=== PATIENT | male | born 1975 | race Caucasian/White ===

== ENCOUNTER → 2017-06-20 | Outpatient (CLI) | payer OTHER ==
--- NOTE | 2017-06-20 08:33 | MR ---
EXAMINATION TYPE: MR angio head wo con DATE OF EXAM: 06/20/2017 8:28 AM COMPARISON: NONE HISTORY: Headache Three-dimensional [id number] intracranial MRA was performed with multiple intensity projection im ages submitted and source data reviewed at the workstation. The vertebrobasilar system as well as intracranial portions of the internal carotid arteries and thei r major tributaries are patent. I do not see evidence for sizable aneurysm or vascular malformation. IMPRESSION: Normal study.
== END | disposition home or self-care (01) ==
LOC: RADMRIMAIN 08:06
PROVIDERS: ATTEND Family Medicine
DX: R51 Headache (principal)
CPT/HCPCS: 70544

== ENCOUNTER 2018-04-21 18:52 | Emergency (ER) | payer OTHER ==
[2018-04-21 19:13] VITALS: BP 162/95; PULSE 72; RESP 18; TEMP 99.2
[2018-04-21] MEDS ORDERED: ALPRAZolam 0.5 MG TAB PO STA (19:38)
--- NOTE | 2018-04-21 19:38 | ED ---
Psych HPI - General Chief Complaint: Psychiatric Symptoms Stated Complaint: ALLERGIC REACTION Time Seen by Provider: 04/21/18 19:17 Source: patient Mode of arrival: ambulatory - History of Present Illness Initial Comments: Patient is a 43-year-old male that presents for anxiety. The patient states that he is been on Risperdal for the last month and this causes him "very panicky and anxious. He states that he stopped that about 3 days ago and continues to have the symptoms. He denies any suicidal or homicidal ideations.. He states that he called his PCP and they recommended that he come to the emergency department for evaluation. - Related Data Home Medications Medication Instructions Recorded Confirmed Citalopram Hydrobromide [CeleXA] 40 mg PO DAILY 01/24/14 04/21/18 Omeprazole [PriLOSEC] 20 mg PO AC-BID 01/24/14 04/21/18 busPIRone HCL 5 mg PO TID 04/21/18 04/21/18 Previous Rx's Medication Instructions Recorded ALPRAZolam [Xanax] 0.5 mg PO TID PRN #3 tablet 04/21/18 Allergies Allergy/AdvReac Type Severity Reaction Status Date / Time acetaminophen [From Vicodin] AdvReac Chest Pain Verified 04/21/18 19:24 hydrocodone bitartrate AdvReac Chest Pain Verified 04/21/18 19:24 [From Vicodin] Review of Systems ROS Statement: Those systems with pertinent positive or pertinent negative responses have been documented in the HPI. Constitutional: Negative for chills, fatigue and fever. HENT: Negative for congestion. Respiratory: Negative for chest tightness, shortness of breath and wheezing. Negative for cough Cardiovascular: Negative for chest pain and palpitations. Gastrointestinal: Negative for abdominal pain. Negative for abdominal distention , diarrhea, nausea and vomiting. Genitourinary: Negative for dysuria. Musculoskeletal: Negative for back pain, neck pain and neck stiffness. Skin: Negative for color change. Neurological: Negative for dizziness, speech difficulty, weakness and light- headedness. Psychiatric/Behavioral: Negative for agitation and confusion. Positive for anxiety ROS Other: All systems not noted in ROS Statement are negative. Past Medical History Additional Past Medical History / Comment(s): aortic valve holes. History of Any Multi-Drug Resistant Organisms: None Reported Past Surgical History: Appendectomy, Cholecystectomy Additional Past Surgical History / Comment(s): "fatty cyst removed" Past Psychological History: Anxiety, Depression Smoking Status: Former smoker Past Alcohol Use History: Rare Past Drug Use History: None Reported General Exam - General Exam Comments Initial Comments: Constitutional: Pt appears well-developed and well-nourished. No distress. Head: Normocephalic and atraumatic. Eyes: EOM are normal. Neck: Normal range of motion. Neck supple. Cardiovascular: Normal rate, regular rhythm, S1 normal, S2 normal and normal heart sounds. Exam reveals no gallop and no friction rub. No murmur heard. Pulmonary/Chest: Effort normal and breath sounds normal. No tachypnea and no bradypnea. No respiratory distress. No wheezes or rales noted. Abdominal: Soft. Bowel sounds are normal. Pt exhibits no shifting dullness, no distension, no pulsatile liver, no fluid wave, no abdominal bruit and no ascites. There is no rigidity, no rebound, no guarding, no tenderness at McBurney's point and negative Berger's sign. There is no tenderness. Musculoskeletal: Normal range of motion. Neurological: Pt is alert and oriented to person, place, and time. No cranial nerve deficit. Skin: Skin is warm and dry. No rash noted. Pt is not diaphoretic. No erythema. No pallor. Psychiatric: Pt has a normal mood and affect. Pt behavior is normal. Thought content normal. Negative for suicidal ideation or homicidal ideation Limitations: no limitations Course Vital Signs 04/21/18 19:06 Temperature 99.2 F Pulse Rate 72 Respiratory 18 Rate Blood Pressure 162/95 O2 Sat by Pulse 97 Oximetry Medical Decision Making - Medical Decision Making had no clear-cut suicidal or homicidal ideation, he was offered small dose of benzodiazepine versus psychiatric evaluation as well as possible management of those prescription medications. Because the patient had children at home as well as a child. Hospital, patient elected to try a small dose of benzodiazepine, Xanax, and follow up with PCP tomorrow which she already had an appointment with. Because again, he had no homicidal or suicidal ideation, it was thought this was an appropriate treatment plan. At the time of disposition , patient was resting comfortably in no acute distress. Disposition Clinical Impression: Acute anxiety Disposition: HOME SELF-CARE Condition: Good Prescriptions: ALPRAZolam [Xanax] 0.5 mg PO TID PRN #3 tablet PRN Reason: Agitation Is patient prescribed a controlled substance at d/c from ED?: Yes Referrals: Aristides Carvajal MD [Primary Care Provider] - 1-2 days Time of Disposition: 19:38
== END 2018-04-21 19:51 | disposition home or self-care (01) ==
LOC: EC 18:52
DX: F41.9 Anxiety disorder, unspecified (principal); F32.9 Major depressive disorder, single episode, unspecified; Z79.899 Other long term (current) drug therapy; Z88.5 Allergy status to narcotic agent; Z88.6 Allergy status to analgesic agent; Z87.891 Personal history of nicotine dependence
CPT/HCPCS: 99283

== ENCOUNTER → 2023-12-11 | Outpatient (CLI) | payer OTHER ==
--- NOTE | 2023-12-11 16:46 | XR ---
EXAMINATION TYPE: XR cervical spine limited DATE OF EXAM: 12/11/2023 COMPARISON: None HISTORY: Cervical radicular pain TECHNIQUE: 3 view cervical spine FINDINGS: Prevertebral space is normal. Some disc space narrowing is present at C6-7. Remaining disc heights are preserved. Posterior spinal lamellar line is intact. Odontoid is obscured by overlying ma xilla and occiput. Additional imaging attempts were performed. IMPRESSION: 1. No acute osseous abnormality radiographically apparent 2. Minimal degenerative disc changes C6-7 [facility], Workstation: [facility], 12/11/2023 4:44 PM
[2023-12-12 02:20] LABS: Basophils # (A) 0.05 X 10*3/uL (0.00-0.10); Basophils % (A) 0.6 %; Eosinophils # (A) 0.47 X 10*3/uL (0.04-0.35); Eosinophils % (A) 5.6 %; HCT 47.6 % (39.6-50.0); HGB 16.3 g/dL (13.0-17.0); Lymphocytes # (A) 1.94 X 10*3/uL (0.90-5.00); Lymphocytes % (A) 22.9 %; MCH 28.5 pg (27.0-32.0); MCHC 34.2 g/dL (32.0-37.0); MCV 83.2 FL (80.0-97.0); Mean Platelet Volume 10.8 FL (9.5-12.2); Monocytes # (A) 0.65 X 10*3/uL (0.20-1.00); Monocytes % (A) 7.7 %; NRBC Per 100 WBC 0 X 10*3/uL (0.00-0.01); Neutrophils # (A) 5.33 X 10*3/uL (1.80-7.70); Platelet Count 242 X 10*3/uL (140-440); RBC 5.72 X 10*6/uL (4.40-5.60); RDW 13.5 % (11.5-14.5); WBC 8.46 X 10*3/uL (4.50-10.00)
[2023-12-12 03:15] LABS: ALT 36 U/L (10-49); AST 27 U/L (14-35); Albumin 4.6 g/dL (3.8-4.9); Albumin/Globulin Ratio 1.84 Ratio (1.60-3.17); Alkaline Phosphatase 110 U/L (41-126); BUN/Creat Ratio 9.08 Ratio (12.00-20.00); Blood Urea Nitrogen 10.9 mg/dL (9.0-27.0); Calcium 9.4 mg/dL (8.7-10.3); Carbon Dioxide 26.1 mmol/L (21.6-31.8); Chloride 105 mmol/L (96-109); Globulin 2.5 g/dL (1.6-3.3); Glucose 91 mg/dL (70-110); Potassium 3.9 mmol/L (3.5-5.5); Prostate Specific Antigen 0.23 ng/mL (0.000-3.500); Sodium 142 mmol/L (135-145); Total Bilirubin 0.6 mg/dL (0.3-1.2); Total Protein 7.1 g/dL (6.2-8.2)
== END | disposition home or self-care (01) ==
LOC: RADXRMAIN 16:14
PROVIDERS: ATTEND Family Medicine
DX: M54.12 Radiculopathy, cervical region
CPT/HCPCS: 72040; 80053; 82306; 84153; 84443; 85025

== ENCOUNTER → 2024-05-29 | Outpatient (CLI) | payer OTHER ==
--- NOTE | 2024-05-29 16:30 | XR ---
EXAMINATION TYPE: XR lumbar spine 2 or 3V, XR thoracic spine complete DATE OF EXAM: 05/29/2024 4:14 PM COMPARISON: None CLINICAL INDICATION: Male, 49 years old with history of M54.9 DORSALGIA, UNSPECIFIED; PHH, pain TECHNIQUE: XR lumbar spine 2 or 3V, XR thoracic spine complete - Frontal, lateral and coned in L5-S1 lateral views of the spine. 3 views of the thoracic spine FINDINGS: No evidence of any acute osseous pathology. No evidence of loss of vertebral body height i s seen. There is normal alignment of the lumbar vertebral bodies. Scattered disc space narrowing. Mul tilevel marginal osteophyte formation throughout the visualized spine. There is facet joint arthropat hy throughout the spine. Scattered at least mild neural foraminal stenosis. IMPRESSION: 1. No acute fracture. 2. Mild multilevel disc degeneration. [facility], , 05/29/2024 4:27 PM
== END | disposition home or self-care (01) ==
LOC: RADXRMAIN 15:48
PROVIDERS: ATTEND Physician Assistant
DX: M51.360 Other intervertebral disc degeneration, lumbar region with discogenic back pain only (principal)
CPT/HCPCS: 72072; 72100